=== PATIENT | male | born 1980 | race American Indian/Alaskan Native ===

== ENCOUNTER 2018-03-14 22:45 | Emergency (ER) | payer MEDICARE ==
[2018-03-15 00:50] VITALS: BP 182/111
[2018-03-15] MEDS ORDERED: CATAPRES PO ONE ×2 (00:53→00:56)
[2018-03-15 01:31] LABS: Basophils # (Auto) 0.1 K/mm3 (0.0-0.1); Eosinophils # (Auto) 0.2 K/mm3 (0.0-0.4); Eosinophils % (Auto) 4.2 % (0.0-4.3); Monocytes # (Auto) 0.7 K/mm3 (0.0-0.8)
[2018-03-15 01:39] LABS: Hematocrit 35.6 % (35.5-45.6); Hemoglobin 11.6 gm/dl (11.8-15.2); Red Blood Count 4.35 M/mm3 (3.65-5.03)
[2018-03-15 01:40] LABS: Basophils % (Auto) 1.3 % (0.0-1.8); Lymphocytes % (Auto) 19.6 % (13.4-35.0); Mean Corpuscular HGB Conc 33 % (32-34); Mean Corpuscular Hemoglobin 27 pg (28-32); Mean Corpuscular Volume 82 fl (84-94); Platelet Count 155 K/mm3 (140-440); Red Cell Distribution Width 22.2 % (13.2-15.2)
[2018-03-15 01:45] LABS: Albumin 4.4 g/dL (3.9-5); BUN/Creatinine Ratio 1; Blood Urea Nitrogen 14 mg/dL (9-20); Calcium 9.4 mg/dL (8.4-10.2); Hemolysis Index 115
[2018-03-15 01:57] LABS: Alanine Aminotransferase < 5 units/L (7-56)
== END 2018-03-15 02:06 | disposition left against medical advice (07) ==
LOC: ED 22:45
DX: R03.0 Elevated blood-pressure reading, without diagnosis of hypertension (principal); Z53.21 Procedure and treatment not carried out due to patient leaving prior to being seen by health care provider
CPT/HCPCS: 36415; 80053; 85025; 93005; 93010